=== PATIENT | female | born 1930 | race Caucasian/White ===

== ENCOUNTER 2016-12-22 06:22 | Outpatient (RCR) | payer MEDICARE, BC ==
[~2016-12-22] VITALS: Ht 170.2 cm; Wt 69.0 kg
[2016-12-22] MEDS ORDERED: Succinylcholine 20mg/ml 10ml vial ONE (06:23)
[2016-12-22] MEDS ORDERED: Diazepam 10mg/2ml Inj ONE (06:23)
[2016-12-22] MEDS ORDERED: Methohexital Sodium Syr 100mg/10ml IVP ONE (06:23)
[2016-12-22] MEDS ORDERED: NS 550ML IV ONE (06:23)
[2016-12-24] MEDS ORDERED: Succinylcholine 20mg/ml 10ml vial ONE (06:23)
[2016-12-24] MEDS ORDERED: NS 550ML IV ONE (06:23)
[2016-12-24] MEDS ORDERED: Methohexital Sodium Syr 100mg/10ml IVP ONE (06:23)
[2016-12-24] MEDS ORDERED: Diazepam 10mg/2ml Inj ONE (06:23)
[2016-12-26] MEDS ORDERED: NS 550ML IV ONE (22:32)
[2016-12-26] MEDS ORDERED: Methohexital Sodium Syr 100mg/10ml IVP ONE (22:32)
[2016-12-26] MEDS ORDERED: Diazepam 10mg/2ml Inj ONE (22:32)
[2016-12-26] MEDS ORDERED: Succinylcholine 20mg/ml 10ml vial ONE (22:32)
[2016-12-29] MEDS ORDERED: Succinylcholine 20mg/ml 10ml vial ONE (12:00)
[2016-12-29] MEDS ORDERED: Methohexital Sodium Syr 100mg/10ml IVP ONE (12:00)
[2016-12-29] MEDS ORDERED: NS 550ML IV ONE (12:00)
[2016-12-29] MEDS ORDERED: Diazepam 10mg/2ml Inj ONE (12:00)
== END 2016-12-30 | disposition home or self-care (01) ==
LOC: ECT 06:22
DX: F33.2 Major depressive disorder, recurrent severe without psychotic features (principal); Z96.643 Presence of artificial hip joint, bilateral; I10 Essential (primary) hypertension; M81.0 Age-related osteoporosis without current pathological fracture; M19.90 Unspecified osteoarthritis, unspecified site
CPT/HCPCS: 90870; J0330; J3360; J7040

== ENCOUNTER 2017-07-17 06:36 | Outpatient (RCR) | payer MEDICARE, BC ==
[~2017-07-17] VITALS: Ht 170.2 cm; Wt 69.0 kg
[2017-07-17] MEDS ORDERED: Glycopyrrolate 0.2mg/ml 1ml Vial ONE (06:37)
[2017-07-17] MEDS ORDERED: Succinylcholine 20mg/ml 10ml vial ONE (06:37)
[2017-07-17] MEDS ORDERED: Methohexital Sodium Syr 100mg/10ml IVP ONE (06:37)
[2017-07-17] MEDS ORDERED: NS 500ML IV ONE (06:37)
[2017-07-17] MEDS ORDERED: Sodium Chloride 500ML 500 ML IV ONE (09:11)
[2017-07-20] MEDS ORDERED: NS 500ML IV ONE (06:37)
[2017-07-20] MEDS ORDERED: Glycopyrrolate 0.2mg/ml 1ml Vial ONE (06:37)
[2017-07-20] MEDS ORDERED: Succinylcholine 20mg/ml 10ml vial ONE (06:37)
[2017-07-20] MEDS ORDERED: Methohexital Sodium Syr 100mg/10ml IVP ONE (06:37)
[2017-07-20] MEDS ORDERED: Sodium Chloride 500ML 500 ML IV ONE (10:00)
[2017-07-24] MEDS ORDERED: NS 500ML IV ONE (06:00)
[2017-07-24] MEDS ORDERED: Glycopyrrolate 0.2mg/ml 1ml Vial ONE (06:00)
[2017-07-24] MEDS ORDERED: Methohexital Sodium Syr 100mg/10ml IVP ONE (06:00)
[2017-07-24] MEDS ORDERED: Succinylcholine 20mg/ml 10ml vial ONE (06:00)
[2017-07-24] MEDS ORDERED: Sodium Chloride 500ML 500 ML IV ONE (10:26)
[2017-07-27] MEDS ORDERED: Glycopyrrolate 0.2mg/ml 1ml Vial ONE (06:00)
[2017-07-27] MEDS ORDERED: Methohexital Sodium Syr 100mg/10ml IVP ONE (06:00)
[2017-07-27] MEDS ORDERED: NS 500ML IV ONE (06:00)
[2017-07-27] MEDS ORDERED: Succinylcholine 20mg/ml 10ml vial ONE (06:00)
[2017-07-27] MEDS ORDERED: Sodium Chloride 500ML 500 ML IV ONE (12:25)
[2017-07-29] MEDS ORDERED: Succinylcholine 20mg/ml 10ml vial ONE (07:00)
[2017-07-29] MEDS ORDERED: Methohexital Sodium Syr 100mg/10ml IVP ONE (07:00)
[2017-07-29] MEDS ORDERED: NS 500ML IV ONE (07:00)
[2017-07-29] MEDS ORDERED: Glycopyrrolate 0.2mg/ml 1ml Vial ONE (07:00)
[2017-07-29] MEDS ORDERED: Sodium Chloride 500ML 500 ML IV ONE (10:56)
== END 2017-08-01 | disposition home or self-care (01) ==
LOC: ECT 06:36
DX: F33.2 Major depressive disorder, recurrent severe without psychotic features (principal)
CPT/HCPCS: 90870; J0330; J3360; J7040

== ENCOUNTER 2018-11-22 06:05 | Outpatient (RCR) | payer MEDICARE, BC ==
[~2018-11-22] VITALS: Ht 170.2 cm; Wt 69.0 kg
[2018-11-22] MEDS ORDERED: Methohexital Sodium Syr 100mg/10ml IVP ONE ×2 (06:06)
[2018-11-22] MEDS ORDERED: Glycopyrrolate 0.2mg/ml 1ml Vial ONE ×2 (06:06)
[2018-11-22] MEDS ORDERED: NS 500ML ONE ×2 (06:06)
[2018-11-22] MEDS ORDERED: Succinylcholine 20mg/ml 10ml vial ONE ×2 (06:06)
[2018-11-22 10:10] VITALS: BP 169/89
[2018-11-22 10:25] VITALS: BP 122/56
[2018-11-22 10:30] VITALS: BP 130/50
[2018-11-22 10:35] VITALS: BP 137/65
[2018-11-22 10:40] VITALS: BP 120/55
[2018-11-24] MEDS ORDERED: Methohexital Sodium Syr 100mg/10ml IVP ONE (08:00)
[2018-11-24] MEDS ORDERED: NS 500ML ONE (08:00)
[2018-11-24] MEDS ORDERED: Glycopyrrolate 0.2mg/ml 1ml Vial ONE (08:00)
[2018-11-24] MEDS ORDERED: Succinylcholine 20mg/ml 10ml vial ONE (08:00)
[2018-11-24 10:56] VITALS: BP 137/68
[2018-11-24 11:10] VITALS: BP 97/45
[2018-11-24 11:15] VITALS: BP 84/44
[2018-11-24 11:20] VITALS: BP 97/53
[2018-11-24 11:25] VITALS: BP 107/53
[2018-11-26 08:10] VITALS: BP 142/76
[2018-11-26 08:30] VITALS: BP 129/61
[2018-11-26 08:35] VITALS: BP 125/56
[2018-11-26 08:40] VITALS: BP 104/48
[2018-11-26 08:45] VITALS: BP 109/66
[2018-11-29] MEDS ORDERED: Glycopyrrolate 0.2mg/ml 1ml Vial ONE (07:00)
[2018-11-29] MEDS ORDERED: Methohexital Sodium Syr 100mg/10ml IVP ONE (07:00)
[2018-11-29] MEDS ORDERED: Succinylcholine 20mg/ml 10ml vial ONE (07:00)
[2018-11-29] MEDS ORDERED: NS 500ML ONE (07:00)
[2018-11-29 09:16] VITALS: BP 149/70
[2018-11-29 09:35] VITALS: BP 134/48
[2018-11-29 09:40] VITALS: BP 125/43
[2018-11-29 09:45] VITALS: BP 104/44
[2018-11-29 09:50] VITALS: BP 111/48
== END 2018-12-02 | disposition home or self-care (01) ==
LOC: ECT 06:05
DX: F33.2 Major depressive disorder, recurrent severe without psychotic features (principal); I10 Essential (primary) hypertension; M81.0 Age-related osteoporosis without current pathological fracture; M19.90 Unspecified osteoarthritis, unspecified site; Z96.643 Presence of artificial hip joint, bilateral
CPT/HCPCS: 90870; J0330; J3360; J7040